=== PATIENT | male | born 1970 | race Caucasian/White ===

== ENCOUNTER → 2018-09-07 | Outpatient (CLI) | payer BC ==
[~2018-09-07] MED LIST: CATHETER FLUSH 10 ML SYR IV PRN
--- NOTE | 2018-09-07 15:54 | Diagnostic Imaging Report ---
INDICATION: Right upper quadrant pain. TECHNIQUE: Patient was administered 5.5 mCi technetium 99m Choletec intravenously and imaging over the abdomen was performed. At 45 minutes, patient ingested 8 ounces of Ensure and a gallbladder ejection fraction was calculated. FINDINGS: There is homogeneous uptake of activity by the liver with prompt excretion of activity into the common duct and gallbladder. There is normal passage of activity into the small bowel. Gallbladder ejection fraction is slightly low at 24%. Normal values are 33% or greater. IMPRESSION: 1. No evidence of cystic duct or common bile duct obstruction. 2. Low gallbladder ejection fraction of 24%. Dictated by: Dictated on workstation # [id number]
== END ==
LOC: CARD 12:27
PROVIDERS: ATTEND Family Medicine
DX: R10.11 Right upper quadrant pain (principal); K82.8 Other specified diseases of gallbladder
CPT/HCPCS: 78227

== ENCOUNTER 2018-09-16 14:14 | Outpatient (CLI) | payer BC ==
[~2018-09-16] VITALS: Ht 172.7 cm; Wt 99.8 kg
[2018-09-16] MEDS ORDERED: LISI40TA PO (14:20)
[2018-09-16] MEDS ORDERED: ASPI-586 PO (14:21)
[2018-09-16] MEDS ORDERED: OMG1KC PO (14:21)
[2018-09-16] MEDS ORDERED: ASCO500C15 PO (14:21)
[2018-09-16] MEDS ORDERED: LYSI100014 PO (14:21)
[2018-09-16] MEDS ORDERED: SIMV20TA PO (14:28)
[2018-09-16] MEDS ORDERED: LISI-552 PO (14:28)
[2018-09-16] MEDS ORDERED: PANT40TA2 PO (14:28)
[2018-09-17] MEDS ORDERED: HYDR-34 PO (12:24)
== END 2018-09-16 14:32 | disposition home or self-care (01) ==
LOC: PREOP 14:14
PROVIDERS: ATTEND Surgery
DX: Z01.818 Encounter for other preprocedural examination (principal)

== ENCOUNTER 2018-09-17 09:57 | Day surgery (SDC) | payer BC ==
[~2018-09-17] VITALS: Ht 172.7 cm; Wt 99.8 kg
[~2018-09-17 09:57] MED LIST changes: +ASCO500C15 PO; +ASPI-586 PO; -CATHETER FLUSH 10 ML SYR IV PRN; +LISI-552 PO; +LISI40TA PO; +LYSI100014 PO; +OMG1KC PO; +PANT40TA2 PO; +SIMV20TA PO
[2018-09-17] MEDS ORDERED: ceFAZolin INJECTION 1,000 MG in WATER (STERILE) FOR INJECTION 10 ML IV ONE (10:15)
[2018-09-17] MEDS ORDERED: proPOfol 200 MG/20 ML (DIPRIVAN) VIAL IV ONE ×2 (11:27→14:03)
[2018-09-17] MEDS ORDERED: ONDANSETRON 4 MG/2 ML (SDV) Z0FRAN ONE (11:27)
[2018-09-17] MEDS ORDERED: LIDOCAINE PF 2% 5 ML (XYLOCAINE) VIAL ONE (11:27)
[2018-09-17] MEDS ORDERED: ROCURONIUM 10 MG/ML 5 ML SYRINGE IV ONE (11:27)
[2018-09-17] MEDS ORDERED: DEXAMETHASONE 10 MG/ML (DECADRON) 1 ML VIAL ONE (11:27)
[2018-09-17] MEDS ORDERED: NEOSTIGMINE 1 MG/ML 5 ML SYRINGE ONE (11:27)
[2018-09-17] MEDS ORDERED: SEVOFLURANE (ULTANE) 15 ML INHAL SOLN ONE ×2 (11:27→14:19)
[2018-09-17] MEDS ORDERED: GLYCOPYRROLATE 0.2 MG/ML (ROBINUL) 2 ML VIAL ONE (11:27)
[2018-09-17] MEDS ORDERED: fentaNYL INJECTION 100 MCG/2 ML AMP ONE ×2 (11:28→13:57)
[2018-09-17] MEDS ORDERED: MIDAZOLAM 2 MG/2 ML (VERSED) VIAL ONE (11:28)
[2018-09-17 11:30] VITALS: BP 147/85
[2018-09-17 11:36] LABS: EOSINOPHILS % (AUTO) 3 % (0-10); HEMATOCRIT 47 % (40-54); LYMPHOCYTES % (AUTO) 33 % (12-44); MEAN CORPUSCULAR HEMOGLOBIN 30 PG (25-34); MEAN CORPUSCULAR HGB CONC 34 G/DL (32-36); MEAN CORPUSCULAR VOLUME 89 FL (80-99); MEAN PLATELET VOLUME 10.5 FL (7.4-10.4); MONOCYTES % (AUTO) 13 % (0-12); NEUTROPHILS % (AUTO) 51 % (42-75); PLATELET COUNT 225 10^3/uL (130-400); WHITE BLOOD COUNT 9.8 10^3/uL (4.3-11.0)
[2018-09-17 11:37] LABS: BASOPHILS # (AUTO) 0.1 10^3/uL (0.0-0.1); BASOPHILS % (AUTO) 1 % (0-10); EOSINOPHILS # (AUTO) 0.3 10^3/uL (0.0-0.3); LYMPHOCYTES # (AUTO) 3.3 X 10^3 (1.0-4.0); MONOCYTES # (AUTO) 1.2 X 10^3 (0.0-1.0)
[2018-09-17] MEDS: LACTATED RINGERS 1,000 ML IV PRN ×2 (11:40→13:36)
[2018-09-17] MEDS ORDERED: FAMOTIDINE 20MG/2ML IV (PEPCID) IV ONE (11:45)
[2018-09-17] MEDS ORDERED: BUP/EPI 0.5% 1:200,000 (SENSORCAINE) 30 ML VIAL ONE (12:01)
--- NOTE | 2018-09-17 12:23 | Progress Note-Pre Operative ---
Pre-Operative Progress Note H&P Reviewed The H&P was reviewed, patient examined and no changes noted. Date Seen by Provider: Sep 17, 2018 Time Seen by Provider: 12:15 Date H&P Reviewed: Sep 17, 2018 Time H&P Reviewed: 12:15 Pre-Operative Diagnosis: symptomatic biliary dyskinesia BRADLEY SANABRIA MD Sep 17, 2018 12:23
[2018-09-17] MEDS ORDERED: HYDR-34 PO (12:24)
--- NOTE | 2018-09-17 12:25 | Discharge Inst-Surgical ---
D/C Lap Instructions-ELLY New, Converted, or Re-Newed RX: RX on Chart Follow Up Appt in 2 weeks Activity as tolerated No driving for 24 hours No driving while on pain medications Incentive Spirometry use every 2 hours while awake Regular Diet Symptoms to Report: Fever over 101 degree F, Nausea/Vomiting Infection Signs and Symptoms to report: Increased redness, Foul odor of wound, Increased drainage Bathing instructions: May shower Operative Area Clean/Dry; Keep incision clean/dry If any problems/questions: Contact your physician or go to Emergency Room BRADLEY SANABRIA MD Sep 17, 2018 12:25
[2018-09-17] MEDS ORDERED: morphine INJ 10 MG/ML 1ML (SYR OR VIAL) IVP PRN (12:30)
[2018-09-17] MEDS ORDERED: oxyCODONE/APAP 5/325MG (PERCOCET 5) TABLET PO PRN (12:30)
[2018-09-17] MEDS ORDERED: ONDANSETRON 4 MG/2 ML (SDV) Z0FRAN IVP PRN ×2 (12:30→14:45)
[2018-09-17] MEDS ORDERED: ACETAMINOPHEN 325 MG TABLET PO PRN (12:30)
--- NOTE | 2018-09-17 14:24 | Progress Note-Post Operative ---
Post-Operative Progess Note Surgeon (s)/[employer] (s) Surgeon BRADLEY SANABRIA MD [employer]: lloyd kinney ALODIZE MACHINE OPERATOR Pre-Operative Diagnosis symptomatic biliary dyskinesia Post-Operative Diagnosis same, umbilical hernia(reducible) Procedure & Operative Findings Date of Procedure 09/17/18 Procedure Performed/Findings laparoscopic cholecystectomy, umbilical hernia repair with mesh. Anesthesia Type GET Estimated Blood Loss Estimated blood loss (mL): minimal Specimens/Packing Specimens Removed gallbladder BRADLEY SANABRIA MD Sep 17, 2018 14:24
[2018-09-17] MEDS ORDERED: PROMETHAZINE INJ 25 MG/ML (PHENERGAN) AMP IVP ONE (14:45)
[2018-09-17] MEDS ORDERED: MEPERIDINE (DEMEROL) INJ 50 MG/ML IVP ONE (14:45)
[2018-09-17] MEDS ORDERED: fentaNYL INJECTION 100 MCG/2 ML AMP IVP ONE (14:45)
[2018-09-17 15:30] VITALS: BP 127/65
[2018-09-17 16:00] VITALS: BP 128/62
[2018-09-17 16:30] VITALS: BP 130/66
[2018-09-17 17:00] VITALS: BP 130/66
--- NOTE | 2018-09-17 21:12 | OPERATIVE REPORT ---
DATE OF SERVICE: 09/17/2018 ATTENDING PRIMARY CARE PHYSICIAN: Dr. Kimberlee Cole. PREOPERATIVE DIAGNOSIS: Symptomatic biliary dyskinesia. POSTOPERATIVE DIAGNOSES: Symptomatic biliary dyskinesia, reducible umbilical hernia. Fascial defect approximately 1.5 x 1.5 cm in size. PROCEDURE: Laparoscopic cholecystectomy and umbilical hernia repair with mesh. SURGEON: Bradley Sanabria MD PENCIL SORTER: Ken Gary APRN ANESTHESIA: General endotracheal. ESTIMATED BLOOD LOSS: Minimal. FINDINGS: A distended gallbladder, no gallstones. There was an umbilical hernia, which was reducible; however, significant in size, approximately 1.5 cm in size. Nothing within the hernia sac. DISPOSITION: The patient tolerated the procedure well. INDICATIONS: The patient is a 48-year-old male referred over to us for biliary dyskinesia. This gentleman has had epigastric as well as right upper abdominal quadrant pain with radiation towards the back. He also reports a bloating sensation as well as diarrhea and at times, the discomfort would be sharp and intense. He has intermittent bouts of the symptoms, which are exacerbated by food such as milk, pizza as well as foods high in fat content. He underwent an ultrasound, which did not show any stones; however, a HIDA scan did show an ejection fraction of 24% and reproduction of symptoms during the administration of a Kinevac analogue consistent with a biliary dyskinesia. He was found to have a significant sized umbilical hernia, which was reducible; however, approximately 1.5 cm in size. DESCRIPTION OF PROCEDURE: The patient was brought to the operating room, laid supine on the table. After adequate IV pain and sedating medications and general endotracheal intubation, the abdomen was prepped and draped in standard surgical fashion. A 0.5% Marcaine with epinephrine was used to anesthetize the overlying skin in the left upper abdominal quadrant. A transverse skin incision made using a 15 blade. An 0 silk suture was applied to the medial aspect of the incision for traction and a Veress needle inserted with low opening pressure of 0 mmHg. The abdomen was then insufflated to 15 mmHg pressure. The Veress needle removed and a 5 mm Xcel trocar placed followed by a 5 mm 45-degree angle laparoscope visualizing the peritoneal cavity. A 4-quadrant abdominal exploration was performed. There was a distended gallbladder as well as mild liver steatosis. There was also an umbilical hernia identified, which was also a significant size upon physical examination as well as intraperitoneal inspection. It was decided to proceed with repair of the hernia during this laparoscopic procedures well. The supraumbilical region was then anesthetized and through the fascial opening, a 10 mm trocar was placed. In a similar manner, a right upper abdominal quadrant 5 mm port was placed. The patient was then placed in a reverse Trendelenburg position as well as plane right side up, left side down. The fundus of the gallbladder was then retracted anteriorly and superiorly. The hepatoduodenal ligament was then dissected, opened using blunt dissection as well as electrocautery on the hook instrument. The entire critical view of safety was then identified including the triangle of Calot as well as the cystic duct and artery as the only two structures going into the gallbladder as well as the cystic plate behind the proximal gallbladder. A timeout was then taken. The cystic duct and artery were then clipped proximally, distally and cut with EndoShears. The gallbladder was then dissected off the liver bed using cautery using the hook instrument with visualization of good hemostasis as well as no leaking ducts of Luschka. The gallbladder was removed through the 10 mm port site using an EndoCatch bag. We then proceeded with repair of the umbilical hernia. A fascial defect was measured to be approximately 1.5 cm in size. Through the port entry site, a 4.3 cm round coated polypropylene mesh was placed and anchored to the fascia using absorbable SorbaFix tack concentrically around the mesh in a double crown fashion. Good hemostasis was observed. The abdomen was desufflated and remaining ports removed. All skin incisions were then closed using 4-0 Monocryl running subcuticular sutures. Wounds were then cleaned and covered with Dermabond. The patient tolerated the procedure well. We will start him on IV and oral pain medications with a clear liquid diet. Once he is tolerating clears, has good pain control with oral pain medications, ambulating well, we will discharge him home. He will be instructed to do no heavy lifting or exertion for the next two weeks and to continue the pressure dressing on the umbilicus for 5 days, then remove. Job ID: [id number] DocumentID: [id number] Dictated Date: 09/17/2018 14:38:21 Corporate Strategy Analyst Date: 09/17/2018 21:11:59 Dictated By: BRADLEY SANABRIA MD
== END 2018-09-17 17:00 | disposition home or self-care (01) ==
LOC: SDC 09:57
PROVIDERS: ATTEND Surgery
DX: K81.1 Chronic cholecystitis (principal); K42.9 Umbilical hernia without obstruction or gangrene; I10 Essential (primary) hypertension; E78.00 Pure hypercholesterolemia, unspecified; K21.9 Gastro-esophageal reflux disease without esophagitis; Z79.82 Long term (current) use of aspirin; Z79.899 Other long term (current) drug therapy; Z87.891 Personal history of nicotine dependence
CPT/HCPCS: 36415; 85025; 87081

== ENCOUNTER → 2020-05-22 | Outpatient (CLI) | payer BC ==
[~2020-05-22] MED LIST changes: -ASCO500C15 PO; +ASCO500C18 PO; +HYDR-34 PO
[2020-05-22 15:05] LABS: CHOLESTEROL 129 MG/DL (< 200); HDL CHOLESTEROL 50 MG/DL (40-60); TRIGLYCERIDES 91 MG/DL (<150); VLDL CHOLESTEROL 18 MG/DL (5-40)
== END ==
LOC: LAB FS 08:15
PROVIDERS: ATTEND Family Medicine
DX: Z00.01 Encounter for general adult medical examination with abnormal findings (principal)
CPT/HCPCS: 36415; 80061

== ENCOUNTER 2020-07-18 05:42 | Outpatient (RCR) | payer BC ==
[~2020-07-18] VITALS: Ht 172.7 cm; Wt 84.5 kg
[2020-07-18] MEDS ORDERED: ASPI-1238 PO (15:46)
== END 2020-07-21 13:39 | disposition home or self-care (01) ==
LOC: PREOP 05:42
PROVIDERS: ATTEND Surgery
DX: Z01.812 Encounter for preprocedural laboratory examination (principal); Z12.11 Encounter for screening for malignant neoplasm of colon

== ENCOUNTER 2020-07-25 10:12 | Day surgery (SDC) | payer BC ==
[~2020-07-25] VITALS: Ht 172.7 cm; Wt 84.5 kg
[~2020-07-25 10:12] MED LIST changes: +ASPI-1238 PO; +LACTATED RINGERS 1,000 ML IV ONE
[2020-07-25] MEDS ORDERED: LACTATED RINGERS 1,000 ML IV STA (10:34)
[2020-07-25 10:39] VITALS: BP 151/95
[2020-07-25] MEDS ORDERED: MIDAZOLAM 2 MG/2 ML (VERSED) VIAL ONE (11:24)
[2020-07-25] MEDS ORDERED: proPOfol 200 MG/20 ML (DIPRIVAN) VIAL IV ONE ×3 (11:24→12:33)
--- NOTE | 2020-07-25 12:17 | Progress Note-Pre Operative ---
Pre-Operative Progress Note H&P Reviewed The H&P was reviewed, patient examined and no changes noted. Date Seen by Provider: Jul 25, 2020 Time Seen by Provider: 12:17 Date H&P Reviewed: Jul 25, 2020 Time H&P Reviewed: 12:17 Pre-Operative Diagnosis: screening colon ELISABETH DAVID DO Jul 25, 2020 12:17
--- NOTE | 2020-07-25 12:42 | Progress Note-Post Operative ---
Post-Operative Progess Note Surgeon (s)/[employer] Console Operator Track (s) Surgeon ELISABETH DAVID DO [employer] Console Operator Track: na Pre-Operative Diagnosis screening colon Post-Operative Diagnosis diverticulosis Procedure & Operative Findings Date of Procedure 07/25/20 Procedure Performed/Findings colonoscopy Anesthesia Type per sales and marketing representative Estimated Blood Loss Estimated blood loss (mL): none Specimens/Packing Specimens Removed na ELISABETH DAVID DO Jul 25, 2020 12:42
[2020-07-25 12:43] VITALS: BP 122/76
--- NOTE | 2020-07-25 12:44 | Discharge Inst-Simple/Standard ---
Discharge Inst-Standard Patient Instructions/Follow Up Plan of Care/Instructions/FU: 10 years for repeat colonoscopy, if family history of colon cancer 5 years. Any issues before then be seen at that time. High fiber diet due to diverticulosis. Activity as Tolerated: Yes Discharge Diet: Regular Diet (high fiber) ELISABETH DAVID DO Jul 25, 2020 12:44
[2020-07-25 12:48] VITALS: BP 116/66
[2020-07-25 12:55] VITALS: BP 119/67
[2020-07-25 13:25] VITALS: BP 124/68
--- NOTE | 2020-07-25 13:32 | Anesthesia-General Post-Op ---
MAC Patient Condition Mental Status/LOC: Same as Preop Cardiovascular: Satisfactory Nausea/Vomiting: Absent Respiratory: Satisfactory Pain: Controlled Complications: Absent Post Op Complications Complications None Follow Up Care/Instructions Patient Instructions None needed. Anesthesiology Discharge Order Discharge Order Patient is doing well, no complaints, stable vital signs, no apparent adverse anesthesia problems. No complications reported per nursing. FRANK SWANN CRNA Jul 25, 2020 13:32
[2020-07-25 13:45] VITALS: BP 124/68
--- NOTE | 2020-07-25 17:22 | OPERATIVE REPORT ---
DATE OF SERVICE: 07/25/2020 PREOPERATIVE DIAGNOSIS: Screening colonoscopy. POSTOPERATIVE DIAGNOSIS: Diverticulosis. PROCEDURE: Colonoscopy. SURGEON: Elisabeth Thorne DO ANESTHESIA: Per POLE PEELER. ESTIMATED BLOOD LOSS: None. COMPLICATIONS: None. INDICATIONS: The patient is a 50-year-old male needing screening colonoscopy. He understands risks and benefits of procedure and wished to proceed with procedure. Consent was signed in the chart. DESCRIPTION OF PROCEDURE: The patient was taken to the endoscopy suite, placed in left lateral recumbent position. Timeout was performed. Digital rectal exam was performed. No palpable polyps, masses or ulcerations. Scope was inserted in the rectum, advanced all the way to cecum with minimal difficulty. Prep was adequate with irrigation and suction. Scope was then slowly retracted back. No polyps, masses or ulcerations within the cecum, ascending, transverse and descending colon. In the sigmoid colon diverticulosis present. No polyps, masses or ulcerations. Scope was continuously retracted back until in the rectum, where it was also retroflexed noting no other pathology. Scope was returned to its normal position, slowly withdrawn until completely removed. The patient tolerated procedure well without any complications. He was taken to recovery room in stable condition. RECOMMENDATIONS: The patient will need repeat colonoscopy in 10 years unless family history of colon cancer, which would then be 5 years. Any issues before that be seen at that time. Recommend high fiber diet due to diverticulosis. Job ID: [id number] DocumentID: [id number] Dictated Date: 07/25/2020 12:46:19 Director Market Intelligence Date: 07/25/2020 17:21:16 Dictated By: ELISABETH THORNE DO
== END 2020-07-25 13:45 | disposition home or self-care (01) ==
LOC: ENDO 10:12
PROVIDERS: ATTEND Surgery
DX: Z12.11 Encounter for screening for malignant neoplasm of colon (principal); K57.30 Diverticulosis of large intestine without perforation or abscess without bleeding; I10 Essential (primary) hypertension; E78.5 Hyperlipidemia, unspecified; K21.00 Gastro-esophageal reflux disease with esophagitis, without bleeding; K40.90 Unilateral inguinal hernia, without obstruction or gangrene, not specified as recurrent; Z79.02 Long term (current) use of antithrombotics/antiplatelets; Z79.899 Other long term (current) drug therapy; Z83.3 Family history of diabetes mellitus

== ENCOUNTER 2021-03-22 05:41 | Outpatient (CLI) | payer BC ==
[~2021-03-22] VITALS: Ht 172.7 cm; Wt 90.1 kg
[~2021-03-22 05:41] MED LIST changes: -LACTATED RINGERS 1,000 ML IV ONE; -LISI-552 PO; +LISI20TA26 PO; -LISI40TA PO; +LISI40TA9 PO
[2021-03-27] MEDS ORDERED: PANT40TA52 PO (10:59)
[2021-03-27] MEDS ORDERED: LISI10TA25 PO (10:59)
== END 2021-03-27 11:13 | disposition home or self-care (01) ==
LOC: PREOP 05:41
PROVIDERS: ATTEND Surgery
DX: Z01.818 Encounter for other preprocedural examination (principal)

== ENCOUNTER 2021-03-29 06:13 | Day surgery (SDC) | payer BC ==
[~2021-03-29] VITALS: Ht 172 cm; Wt 90.1 kg
[2021-03-29] VITALS (11 sets, daily range): BP systolic 101–161; BP diastolic 60–90
[~2021-03-29 06:13] MED LIST changes: +LISI10TA25 PO; +PANT40TA52 PO
[2021-03-29] MEDS ORDERED: ceFAZolin 2 GM IV Premixed 50 ML IV ONE (06:30)
[2021-03-29] MEDS: LACTATED RINGERS 1,000 ML IV PRN ×2 (06:52→08:32)
[2021-03-29] MEDS ORDERED: LIDOCAINE/EPI 1%-1:100,000 (XYLOCAINE) 20ML ONE (07:17)
[2021-03-29] MEDS ORDERED: LIDOCAINE PF 2% 5 ML (XYLOCAINE) VIAL ONE (07:25)
[2021-03-29] MEDS ORDERED: ONDANSETRON 4 MG/2 ML (SDV) Z0FRAN ONE (07:25)
[2021-03-29] MEDS ORDERED: MIDAZOLAM 2 MG/2 ML (VERSED) VIAL ONE (07:25)
[2021-03-29] MEDS ORDERED: proPOfol 200 MG/20 ML (DIPRIVAN) VIAL IV ONE (07:25)
[2021-03-29] MEDS ORDERED: fentaNYL INJ 100 MCG/2 ML AMP ONE (07:25)
--- NOTE | 2021-03-29 08:05 | Progress Note-Pre Operative ---
Pre-Operative Progress Note H&P Reviewed The H&P was reviewed, patient examined and no changes noted. Date Seen by Provider: Mar 29, 2021 Time Seen by Provider: 08:04 Date H&P Reviewed: Mar 29, 2021 Time H&P Reviewed: 08:04 Pre-Operative Diagnosis: left inguinal hernia ELISABETH DAVID DO Mar 29, 2021 08:04
[2021-03-29] MEDS ORDERED: HYDROmorphone 2 MG/ML VIAL (DILAUDID) ONE (08:14)
[2021-03-29] MEDS ORDERED: SEVOFLURANE (ULTANE) 15 ML INHAL SOLN ONE (08:59)
--- NOTE | 2021-03-29 09:00 | Progress Note-Post Operative ---
Post-Operative Progess Note Surgeon (s)/Packing Shed Supervisor (s) Surgeon ELISABETH DAVID DO Packing Shed Supervisor: Dr. Chamorro to assist in retraction dissection and closure. Pre-Operative Diagnosis left inguinal hernia Post-Operative Diagnosis left direct and indirect inguinal hernia Procedure & Operative Findings Date of Procedure 03/29/21 Procedure Performed/Findings PROCEDURE: Open left inguinal hernia repair COMPLICATIONS: None. INDICATIONS: The patient is a 50, male male with a inguinal hernia. He understands risks and benefits of procedure and wished to proceed with procedure. Consent was signed in the chart. DESCRIPTION OF PROCEDURE: The patient was taken to the operating suite, was prepped and draped in sterile fashion. Surgical pause was performed. Local anesthetic was infiltrated in the lower quadrant. Incision was made and cautery used to dissect down to the external oblique, which was then opened down through the external ring. The spermatic cord was then dissected around. A [place] drain was placed around it and there was a direct defect present. A indirect hernia present which was then dissected off of spermatic cord. The hernia sac was then twisted and suture ligated. The direct defect was reduced and defect closed usin 0 Vicyrl. Using ProGrip mesh, this was secured at Karan's ligament and then incorporated around the spermatic cord and placed under the external oblique. Hemostasis was achieved. The external oblique was then closed recreating the external ring and then the subcutaneous tissues were then reapproximated using 3-0 Vicryl and skin was then closed using 4-0 Monocryl in a subcuticular fashion. The abdomen was then washed and dried and Skin Affix was placed over the incision. The patient tolerated procedure well without any complications and taken to recovery room in stable condition. Anesthesia Type general Estimated Blood Loss Estimated blood loss (mL): minimal Specimens/Packing Specimens Removed hernia sac ELISABETH DAVID DO Mar 29, 2021 09:00
[2021-03-29] MEDS ORDERED: DOCU-143 PO (09:01)
[2021-03-29] MEDS ORDERED: ACHD5005 PO (09:01)
--- NOTE | 2021-03-29 09:04 | Discharge Inst-Simple/Standard ---
Discharge Inst-Standard Discharge Medications New, Converted or Re-Newed RX: RX on Chart Patient Instructions/Follow Up Plan of Care/Instructions/FU: 2-3 weeks [place] Activity as Tolerated: Yes Discharge Diet: Regular Diet Other Inst to Patient Follow up Appt: Make appointment for 2-3 weeks. Instructions: No lifting greater than 10 pounds. No strenuous activity. May shower in 24 hours, no tub bath or soaking. Use incentive spirometer at home as directed. No Smoking Skin/Wound Care: You have special glue over your incision that will fall off on it's own. Symptoms to Report: Appetite Changes, Extremity Discoloration, Numbness/Tingling, Swelling Increased, Bleeding Excessive, Eyesight Changes, Pain Increased, Urine Color Change, Constipation(Persistent), Fever over 101 degree F, Pain/Pressure in chest, Urinating Difficulty, Cough Up/Vomit Blood, Heart Beat Irreg/Pounding, Pain/Pressure in jaw, Vaginal Bleeding Increase, Cramps in feet or legs, Lightheadedness, Pain/Pressure in shoulder, Diarrhea(Persistent), Memory Changes Suddenly, Questions/Concerns, Weight gain consecutive days, Dizziness/Fainting, Nausea/Vomiting, Shortness of Breath, Weight gain over 2 pounds If questions or concerns contact your physician Or seek help at emergency department. ELISABETH DAVID DO Mar 29, 2021 09:04
[2021-03-29] MEDS ORDERED: morphine INJ 10 MG/ML 1ML (SYR OR VIAL) IVP ONE (09:30)
[2021-03-29] MEDS ORDERED: HYDROmorphone 2 MG/ML VIAL (DILAUDID) IV ONE (09:30)
[2021-03-29] MEDS ORDERED: ONDANSETRON 4 MG/2 ML (SDV) Z0FRAN IVP PRN (09:30)
--- NOTE | 2021-03-29 11:46 | Anesthesia-General Post-Op ---
General Patient Condition Mental Status/LOC: Same as Preop Cardiovascular: Satisfactory Nausea/Vomiting: Absent Respiratory: Satisfactory Pain: Controlled Complications: Absent Post Op Complications Complications None Follow Up Care/Instructions Patient Instructions None needed. Anesthesia/Patient Condition Patient Condition Patient was doing well after the procedure, no complaints, stable vital signs, no apparent adverse anesthesia problems. GAYATRI MCNAMARA DO Mar 29, 2021 11:46
== END 2021-03-29 11:15 | disposition home or self-care (01) ==
LOC: SDC 06:13
PROVIDERS: ATTEND Surgery
DX: K40.90 Unilateral inguinal hernia, without obstruction or gangrene, not specified as recurrent (principal); I10 Essential (primary) hypertension; K21.9 Gastro-esophageal reflux disease without esophagitis; Z79.899 Other long term (current) drug therapy; Z79.82 Long term (current) use of aspirin; Z83.3 Family history of diabetes mellitus
CPT/HCPCS: 49505; 87081; C1781